=== PATIENT | male | born 1960 | race Caucasian/White ===

== ENCOUNTER 2016-09-15 01:22 | Emergency (ER) | payer OTHER ==
[~2016-09-15] VITALS: Ht 175.3 cm; Wt 110.3 kg
[~2016-09-15 01:22] MED LIST: ALBU8I INH; LISI2.5T3 PO; LORTA5 PO; METF500 PO; METHY10 PO; PRIL20TA2 PO
[2016-09-15 01:33] VITALS: BP 171/93; PULSE 77; RESP 22; TEMP 98.4; O2SAT 99
--- NOTE | 2016-09-15 01:42 | PD ---
HPI Chief Complaint: Respiratory Symptoms Time Seen by Provider: 01:39 Travel History International Travel<30 days: No Contact w/Intl Traveler<30days: No Traveled to known affect area: No History of Present Illness HPI This is a 56-year-old male who has a history of asthma who presents to the emergency department with increasing shortness of breath that started when he was laying down. He uses albuterol and he started to be able to move some mucus. He hasn't seen either mucus and isn't sure what color it is. He says he hasn't been sick up until this evening. He denies any fevers or chills. He did feel mildly short of breath, constant, with an associated cough. He denies any chest pain. PFSH Past Medical History Narrative Medical Diabetes Hypertension Asthma Arthritis: No Asthma: Yes Heart Rhythm Problems: No Cancer: No Cardiac Catheterization: No Cardiovascular Problems: Yes (htn on meds,) High Cholesterol: No Chest Pain: No Congestive Heart Failure: No COPD: No Cerebrovascular Accident: No Diabetes: Yes Diminished Hearing: No GERD: Yes Glaucoma: No Genitourinary: No Headaches: Yes (SINUS) Hepatitis: No Hiatal Hernia: No Hypertension: No Musculoskeletal: No Neurologic: No Respiratory: Yes Immunizations Current: Yes Migraines: No Myocardial Infarction: No Seizures: No Sleep Apnea: Yes Thyroid Disease: No Ulcer: No ?: Not Past Surgical History Abdominal Surgery: No Appendectomy: No Cardiac Surgery: No Cholecystectomy: No Coronary Artery Bypass Graft: No Ear Surgery: No Endocrine Surgery: No Eye Surgery: No Genitourinary Surgery: No Gynecologic Surgery: No Neurologic Surgery: Yes (SPINAL LAMINECTOMY) Oral Surgery: No Pacemaker: No Thoracic Surgery: No Tonsillectomy: Yes (TONSILS & ADNOIDS) Other Surgery: Yes Social History Alcohol Use: No Tobacco Use: No Substance Use: No Allergies-Medications (Allergen,Severity, Reaction): Coded Allergies: No Known Allergies (Verified , 09/15/16) Reported Meds & Prescriptions Reported Meds & Active Scripts Active Reported Melatonin 5 Mg Tab 5 Mg PO HS Proair Hfa 8.5 GM Inh (Albuterol Sulfate) 90 Mcg/Act Aer 2 Puff INH Q4-6H PRN 108 mcg/actuation Lisinopril 2.5 Mg Tab 2.5 Mg PO DAILY Albuterol Neb (Albuterol Sulfate) 2.5 Mg/0.5 Ml Neb 2.5 Mg NEB ONCE Note: The Albuterol Sulfate Inhalation Solution is concentrated and must be diluted. Read complete instructions carefully before using. Metformin (Metformin HCl) 500 Mg Tab 500 Mg PO BIDPC With meals Review of Systems Except as stated in HPI: all other systems reviewed are Neg Physical Exam Narrative GENERAL:Well appearing, no acute distress SKIN: Focused skin assessment warm and dry. HEAD: Atraumatic. Normocephalic. EYES: Pupils equal and round. No injection or drainage. ENT: Moist mucous membranes NECK: Trachea midline. CARDIOVASCULAR: Regular rate and rhythm. No murmur appreciated. RESPIRATORY: Mild end expiratory wheeze, speaking full sentences GASTROINTESTINAL: Abdomen soft, non-tender, nondistended. MUSCULOSKELETAL: No obvious deformities. NEUROLOGICAL: Awake and alert. No obvious cranial nerve deficits. Moving all extremities. PSYCHIATRIC: Appropriate mood and affect; insight and judgment normal. Data Data Last Documented VS Vital Signs Date Time Temp Pulse Resp B/P Pulse Ox O2 Delivery O2 Flow Rate FiO2 09/15/16 01:58 99 Room Air 09/15/16 01:33 98.4 77 22 171/93 Orders Albuterol-Ipratropium Neb (Duoneb Neb) (09/15/16 01:45) Chest, Pa & Lat (09/15/16 ) Prednisone (Deltasone) (09/15/16 01:45) MDM Medical Decision Making Medical Screen Exam Complete: Yes Emergency Medical Condition: Yes Interpretation(s) Afebrile, no tachycardia, hypertensive Chest x-ray: No acute process Differential Diagnosis Acute asthma exacerbation, pneumonia, congestive heart failure Narrative Course This is a 56-year-old male who presents to the emergency department with increased difficulty breathing this evening. He has a history of asthma. He used a bronchodilator treatment prior to coming to the emergency department and he felt significantly better upon arrival. He had some minimal expiratory wheezing on exam. I administered another DuoNeb and prednisone. Chest x-ray was unremarkable. I think the patient can be discharged home on prednisone in the setting of an acute asthma exacerbation. Diagnosis Primary Impression: Acute asthma exacerbation Qualified Code: J45.21 - Mild intermittent asthma with acute exacerbation Patient Instructions: General Instructions Additional Instructions: If you develop severe shortness of breath, chest pain, or difficulty breathing return to the emergency department. Use albuterol every 4 hours for the next 2 days. Then use as needed for wheezing. Complete your course of steroids. Follow up with your primary care physician in 2-3 days if your symptoms have not improved. Med/Other Pt SpecificInfo: Prescription(s) given Scripts Prednisone 20 Mg Tab40 Mg PO DAILY 4 Days Prov:La Beavers MD 09/15/16 Disposition: 01 DISCHARGE HOME Condition: Stable La Beavers MD Sep 15, 2016 01:42
[2016-09-15] MEDS ORDERED: RESP: ALBUTEROL 2.5 MG/IPRATROPIUM 0.5 MG NEB (SCH) NEB ONE (01:45)
[2016-09-15] MEDS ORDERED: LISI2.5T3 PO (01:45)
[2016-09-15] MEDS ORDERED: ALBUAER3 INH (01:45)
[2016-09-15] MEDS ORDERED: predniSONE 50 MG TAB PO ONE (01:45)
[2016-09-15] MEDS ORDERED: ALBU.5I NEB (01:45)
[2016-09-15] MEDS ORDERED: METF500T PO (01:45)
[2016-09-15] MEDS ORDERED: MELA5TAB15 PO (01:48)
--- NOTE | 2016-09-15 02:19 | RADRPT ---
EXAM DATE/TIME: 09/15/2016 01:44 [facility] COMPARISON: No previous studies available for comparison. INDICATIONS : Shortness of breath. MEDICAL HISTORY : Hypertension. Asthma. Diabetes. SURGICAL HISTORY : None. ENCOUNTER: Initial ACUITY: 1 day PAIN SCORE: 0/10 LOCATION: Bilateral chest FINDINGS: PA and lateral views of the chest demonstrate the lungs to be symmetrically aerated without evidence of mass, infiltrate or effusion. The cardiomediastinal contours are unremarkable. Osseous structure s are intact. CONCLUSION: Normal examination for a patient of this age. Anthony Jones MD on September 15, 2016 at 2:18 Board Certified Radiologist. This report was verified electronically.
[2016-09-15] MEDS ORDERED: PRED20 PO (02:25)
[2016-09-15 02:29] VITALS: BP 142/77; PULSE 77; RESP 18; O2SAT 96
== END 2016-09-15 02:45 | disposition home or self-care (01) ==
LOC: PHED 01:22
DX: J45.21 Mild intermittent asthma with (acute) exacerbation (principal); I10 Essential (primary) hypertension
CPT/HCPCS: 71020; 94664; 99283; J7512

== ENCOUNTER 2017-04-25 04:01 | Emergency (ER) | payer OTHER ==
[~2017-04-25] VITALS: Ht 175.3 cm; Wt 108.2 kg
[~2017-04-25 04:01] MED LIST changes: +ALBU.5I NEB; -ALBU8I INH; +ALBUAER3 INH; -LORTA5 PO; +MELA5 PO; -METF500 PO; +METF500T PO; -METHY10 PO; +PRED20 PO; -PRIL20TA2 PO
[2017-04-25 04:06] VITALS: BP 139/79; PULSE 75; RESP 18; TEMP 98.1; O2SAT 99
[2017-04-25] MEDS ORDERED: SODIUM CHLOR 0.9% 1000 ML INJ 1,000 ML IV ONE (04:34)
[2017-04-25 04:40] VITALS: BP 140/73; PULSE 68; RESP 20; O2SAT 98
[2017-04-25] MEDS ORDERED: SODIUM CHLORIDE 0.9% FLUSH 10 ML FLUSH IVF PRN (04:45)
[2017-04-25] MEDS ORDERED: ONDANSETRON HCL 4 MG/2 ML VIAL IVP ONE (04:45)
--- NOTE | 2017-04-25 04:47 | RADRPT ---
EXAM DATE/TIME: 04/25/2017 04:37 [facility] COMPARISON: CHEST PA & LAT, September 15, 2016, 1:44. INDICATIONS : Palpitations. MEDICAL HISTORY : Hypertension. Asthma. Diabetes SURGICAL HISTORY : None. ENCOUNTER: Initial ACUITY: 1 day PAIN SCORE: 1/10 LOCATION: Bilateral chest FINDINGS: A single view of the chest demonstrates the lungs to be symmetrically aerated without evidence of mas s, infiltrate or effusion. The cardiomediastinal contours are unremarkable. Osseous structures are intact. CONCLUSION: No evidence of acute cardiopulmonary disease. Farooq Emerson MD on April 25, 2017 at 4:46 Board Certified Radiologist. This report was verified electronically.
[2017-04-25 04:49] LABS: AUTOMATED NEUTROPHIL # 3.1 TH/MM3 (1.8-7.7); BASOPHIL # 0.1 TH/MM3 (0-0.2); BASOPHIL % 1.1 % (0.0-2.0); EOSINOPHIL # 0.3 TH/MM3 (0-0.4); EOSINOPHIL % 4.9 % (0.0-4.0); HEMATOCRIT 40.3 % (39.0-51.0); HEMOGLOBIN 13.9 GM/DL (13.0-17.0); LYMPH % 39.2 % (9.0-44.0); LYMPHOCYTE # 2.6 TH/MM3 (1.0-4.8); MEAN CORPUSCULAR HEMOGLOBIN 28.3 PG (27.0-34.0); MEAN CORPUSCULAR HGB CONC 34.5 % (32.0-36.0); MEAN PLATELET VOLUME 7.4 FL (7.0-11.0); MONO % 9.3 % (0.0-8.0); MONOCYTE # 0.6 TH/MM3 (0-0.9); NEUT % 45.5 % (16.0-70.0); PLATELET COUNT 326 TH/MM3 (150-450); RED BLOOD COUNT 4.92 MIL/MM3 (4.50-5.90); RED CELL DISTRIBUTION WIDTH 13.2 % (11.6-17.2); WHITE BLOOD COUNT 6.7 TH/MM3 (4.0-11.0)
[2017-04-25 04:58] LABS: CHLORIDE 103 MEQ/L (98-107); SODIUM (NA) 137 MEQ/L (136-145)
--- NOTE | 2017-04-25 04:59 | PD ---
HPI Chief Complaint: Altered Mental Status Time Seen by Provider: 04:34 Travel History International Travel<30 days: No Contact w/Intl Traveler<30days: No Traveled to known affect area: No History of Present Illness HPI 56-year-old male presents to the emergency department by private transportation for evaluation of feeling confused. Patient is a diabetic. Patient lives alone. Patient recently diagnosed with an upper respiratory infection and started on a nasal steroid and antibiotic. Patient states his last dose of medication was approximately 10 PM Wednesday evening and awakened around 4 AM feeling confused and slightly disoriented. Patient decided to bring himself to the emergency department in case there is any ongoing change. Patient has had fever and has had right sinus maxillary sinus pressure and pain. Patient does not report any visual disturbance speech disturbance upper or lower extremity numbness tingling or weakness or ataxia of gait. Patient does not report any chest pain or shortness of breath. Patient does not report any vomiting but has had nausea. Patient is also had diarrhea. Patient denies dysuria frequency urgency. No joint pain or swelling. Patient had a negative flu test as an outpatient. Patient cannot recall the name of his current antibiotic. Patient was recently started on steroid and antibiotic Wednesday. Patient does not monitor sugars. Patient rates his pain 0/10 in intensity. PFSH Past Medical History Narrative Medical Asthma hypertension diabetes sinusitis spinal fusion laminectomy no tobacco use no alcohol use Arthritis: No Asthma: Yes Heart Rhythm Problems: No Cancer: No Cardiac Catheterization: No Cardiovascular Problems: Yes (htn on meds,) High Cholesterol: No Chest Pain: No Congestive Heart Failure: No COPD: No Cerebrovascular Accident: No Diabetes: Yes Diminished Hearing: No GERD: Yes Glaucoma: No Genitourinary: No Headaches: Yes (SINUS) Hepatitis: No Hiatal Hernia: No Hypertension: No Musculoskeletal: No Neurologic: No Respiratory: Yes Immunizations Current: Yes Migraines: No Myocardial Infarction: No Seizures: No Sleep Apnea: Yes Thyroid Disease: No Ulcer: No Past Surgical History Abdominal Surgery: No Appendectomy: No Cardiac Surgery: No Cholecystectomy: No Coronary Artery Bypass Graft: No Ear Surgery: No Endocrine Surgery: No Eye Surgery: No Genitourinary Surgery: No Gynecologic Surgery: No Neurologic Surgery: Yes (SPINAL LAMINECTOMY) Oral Surgery: No Pacemaker: No Thoracic Surgery: No Tonsillectomy: Yes Other Surgery: Yes (spinal fusion ) Social History Alcohol Use: No Tobacco Use: No Substance Use: No Allergies-Medications (Allergen,Severity, Reaction): Coded Allergies: No Known Allergies (Verified , 09/15/16) Reported Meds & Prescriptions Reported Meds & Active Scripts Active Prednisone 20 Mg Tab 40 Mg PO DAILY 4 Days Reported Melatonin 5 Mg Tab 5 Mg PO HS Proair Hfa 8.5 GM Inh (Albuterol Sulfate) 90 Mcg/Act Aer 2 Puff INH Q4-6H PRN 108 mcg/actuation Lisinopril 2.5 Mg Tab 2.5 Mg PO DAILY Albuterol Neb (Albuterol Sulfate) 2.5 Mg/0.5 Ml Neb 2.5 Mg NEB ONCE Note: The Albuterol Sulfate Inhalation Solution is concentrated and must be diluted. Read complete instructions carefully before using. Metformin (Metformin HCl) 500 Mg Tab 500 Mg PO BIDPC With meals Review of Systems Except as stated in HPI: all other systems reviewed are Neg General / Constitutional: Positive: Fever, No: Chills HENT: Positive: Headaches, Congestion, No: Sore Throat, Neck Stiffness, Neck Pain Cardiovascular: No: Chest Pain or Discomfort Respiratory: No: Shortness of Breath Gastrointestinal: Positive: Nausea, Vomiting, Diarrhea, No: Abdominal Pain Genitourinary: No: Urgency, Frequency, Dysuria, Flank Pain Musculoskeletal: Positive: Myalgias, Arthralgias Skin: No Rash Neurologic: Positive: Dizziness, Change in Mentation, No: Weakness Psychiatric: No: Anxiety Hematologic/Lymphatic: No: Lymph Node Enlargement Physical Exam Narrative GENERAL: Well-developed well-nourished male no acute distress no respiratory distress SKIN: Warm and dry. HEAD: Atraumatic. Normocephalic. EYES: Pupils equal and round. No scleral icterus. No injection or drainage. ENT: No nasal bleeding or discharge. Mucous membranes pink and moist. NECK: Trachea midline. No JVD. CARDIOVASCULAR: Regular rate and rhythm. RESPIRATORY: No accessory muscle use. Clear to auscultation. Breath sounds equal bilaterally. GASTROINTESTINAL: Abdomen soft, non-tender, nondistended. Hepatic and splenic margins not palpable. MUSCULOSKELETAL: Extremities without clubbing, cyanosis, or edema. No obvious deformities. NEUROLOGICAL: Awake and alert. No obvious cranial nerve deficits. Motor grossly within normal limits. Five out of 5 muscle strength in the arms and legs. Normal speech. PSYCHIATRIC: Appropriate mood and affect; insight and judgment normal. Data Data Last Documented VS Vital Signs Date Time Temp Pulse Resp B/P (MAP) Pulse Ox O2 Delivery O2 Flow Rate FiO2 04/25/17 05:57 58 20 125/81 (96) 98 04/25/17 04:06 98.1 Orders Orders Electrocardiogram (04/25/17 04:34) Complete Blood Count With Diff (04/25/17 04:34) Comprehensive Metabolic Panel (04/25/17 04:34) Magnesium (Mg) (04/25/17 04:34) Ckmb (Isoenzyme) Profile (04/25/17 04:34) Troponin I (04/25/17 04:34) Act Partial Throm Time (Ptt) (04/25/17 04:34) Prothrombin Time / Inr (Pt) (04/25/17 04:34) Urinalysis - C+S If Indicated (04/25/17 04:34) Chest, Single Ap (04/25/17 04:34) Ct Brain W/O Iv Contrast(Rout) (04/25/17 04:34) Ecg Monitoring (04/25/17 04:34) Iv Access Insert/Monitor (04/25/17 04:34) Oximetry (04/25/17 04:34) Ondansetron Inj (Zofran Inj) (04/25/17 04:45) Sodium Chloride 0.9% Flush (Ns Flush) (04/25/17 04:45) Sodium Chlor 0.9% 1000 Ml Inj (Ns 1000 M (04/25/17 04:34) CKMB (04/25/17 04:30) CKMB% (04/25/17 04:30) Labs Laboratory Tests Test 04/25/17 04:30 White Blood Count 6.7 TH/MM3 Red Blood Count 4.92 MIL/MM3 Hemoglobin 13.9 GM/DL Hematocrit 40.3 % Mean Corpuscular Volume 82.0 FL Mean Corpuscular Hemoglobin 28.3 PG Mean Corpuscular Hemoglobin Concent 34.5 % Red Cell Distribution Width 13.2 % Platelet Count 326 TH/MM3 Mean Platelet Volume 7.4 FL Neutrophils (%) (Auto) 45.5 % Lymphocytes (%) (Auto) 39.2 % Monocytes (%) (Auto) 9.3 % Eosinophils (%) (Auto) 4.9 % Basophils (%) (Auto) 1.1 % Neutrophils # (Auto) 3.1 TH/MM3 Lymphocytes # (Auto) 2.6 TH/MM3 Monocytes # (Auto) 0.6 TH/MM3 Eosinophils # (Auto) 0.3 TH/MM3 Basophils # (Auto) 0.1 TH/MM3 CBC Comment DIFF FINAL Differential Comment Prothrombin Time 10.2 SEC Prothromb Time International Ratio 1.0 RATIO Activated Partial Thromboplast Time 27.6 SEC Blood Urea Nitrogen 12 MG/DL Creatinine 0.95 MG/DL Random Glucose 167 MG/DL Total Protein 7.3 GM/DL Albumin 3.5 GM/DL Calcium Level 7.9 MG/DL Magnesium Level 2.2 MG/DL Alkaline Phosphatase 66 U/L Aspartate Amino Transf (AST/SGOT) 13 U/L Alanine Aminotransferase (ALT/SGPT) 29 U/L Total Bilirubin 0.2 MG/DL Sodium Level 137 MEQ/L Potassium Level 3.9 MEQ/L Chloride Level 103 MEQ/L Carbon Dioxide Level 25.1 MEQ/L Anion Gap 9 MEQ/L Estimat Glomerular Filtration Rate 82 ML/MIN Total Creatine Kinase 201 U/L Creatine Kinase MB 1.0 NG/ML Troponin I LESS THAN 0.02 NG/ML MDM Medical Decision Making Medical Screen Exam Complete: Yes Emergency Medical Condition: Yes Medical Record Reviewed: Yes Interpretation(s) EKG: Normal sinus rhythm rate [address] elevation injury pattern or ectopy noted CBC & BMP Diagram 04/25/17 04:30 Total Protein 7.3, Albumin 3.5, Calcium Level 7.9 L, Magnesium Level 2.2, Alkaline Phosphatase 66, Aspartate Amino Transf (AST/SGOT) 13 L, Alanine Aminotransferase (ALT/SGPT) 29, Total Bilirubin 0.[address] 04/25/17433 Signed Impressions: Service Date/Time: Tuesday, April 25, 2017 05:01 - CONCLUSION: No acute intracranial abnormality. Right greater than left maxillary sinus disease partly seen. No associated bone destruction or soft tissue changes demonstrated. Farooq Emerson MD Chest X-Ray 04/25/17433 Signed Impressions: Service Date/Time: Tuesday, April 25, 2017 04:37 - CONCLUSION: No evidence of acute cardiopulmonary disease. Farooq Emerson MD Differential Diagnosis Sinusitis, sepsis, altered mentation, poorly controlled diabetes, encephalopathy , pneumonia, TIA, CVA, adverse medication reaction Narrative Course Patient placed on band saw filer and continuous pulse oximetry; IV access obtained; random glucose 165; specimens collected and sent for resulting At 6:39 AM patient reports he feels clinically improved no longer reports feeling fuzzy or disoriented. CT brain noncontrast reveals no acute intracranial abnormality on though does identify right greater than left maxillary sinusitis disease without bony abnormality CBC with automated differential values in normal range complete metabolic panel within normal limits cardiac enzymes are not elevated; UA pending Diagnosis Primary Impression: Sinusitis, acute maxillary Qualified Codes: J01.00 - Acute maxillary sinusitis, unspecified Additional Impressions: Adverse drug reaction Qualified Codes: T88.7XXA - Unspecified adverse effect of drug or medicament, initial encounter Adverse reaction to ear, nose, and throat drugs and preparations Qualified Codes: T49.6X5A - Adverse effect of otorhinolaryngological drugs and preparations, initial encounter Referrals: Primary Care Physician call for appointment Patient Instructions: General Instructions Med/Other Pt SpecificInfo: Prescription(s) given, Med Stopped (steroid/ antibiotic) Scripts Amoxicillin-Clavulanate (Augmentin) 875-125 Mg Tab 1 TAB PO BID for Infection for 10 Days, #20 TAB 0 Refills Prov: Lizzie Guzman MD 04/25/17 Lizzie Guzman MD Apr 25, 2017 04:59
[2017-04-25 05:00] VITALS: BP 121/78; PULSE 82; RESP 20; O2SAT 98
[2017-04-25 05:01] LABS: CALCIUM 7.9 MG/DL (8.5-10.1)
[2017-04-25 05:02] LABS: ALBUMIN 3.5 GM/DL (3.4-5.0); BICARBONATE 25.1 MEQ/L (21.0-32.0); BLOOD UREA NITROGEN 12 MG/DL (7-18); GLUCOSE,RANDOM 167 MG/DL (74-106); MAGNESIUM 2.2 MG/DL (1.5-2.5)
[2017-04-25 05:05] LABS: ALT (GPT) 29 U/L (12-78); AST (GOT) 13 U/L (15-37); CREATININE 0.95 MG/DL (0.60-1.30); GLOMERULAR FILTRATION RATE 82 ML/MIN (>89); PROTHROMBIN TIME - PATIENT 10.2 SEC (9.8-11.6)
[2017-04-25 05:06] LABS: TOTAL BILIRUBIN ADULT 0.2 MG/DL (0.2-1.0)
[2017-04-25 05:07] LABS: TOTAL PROTEIN 7.3 GM/DL (6.4-8.2)
[2017-04-25 05:08] LABS: ALKALINE PHOSPHATASE 66 U/L (45-117)
[2017-04-25 05:10] LABS: TROPONIN I LESS THAN 0.02 NG/ML (0.02-0.05)
--- NOTE | 2017-04-25 05:32 | RADRPT ---
EXAM DATE/TIME: 04/25/2017 05:01 [facility] COMPARISON: No previous studies available for comparison. INDICATIONS : Dizziness and right sided sinus pressure. RADIATION DOSE: 59.38 CTDIvol (mGy) MEDICAL HISTORY : Hypertension. Diabetes. SURGICAL HISTORY : None. ENCOUNTER: Initial ACUITY: 4 - 6 days PAIN SCALE: 8/10 LOCATION: cranial TECHNIQUE: Multiple contiguous axial images were obtained of the head. Using automated exposure control and adj ustment of the mA and/or kV according to patient size, radiation dose was kept as low as reasonably a chievable to obtain optimal diagnostic quality images. DICOM format image data is available electro nically for review and comparison. FINDINGS: CEREBRUM: The ventricles are normal for age. No evidence of midline shift, mass lesion, hemorrhage or acute in farction. No extra-axial fluid collections are seen. POSTERIOR FOSSA: The cerebellum and brainstem are intact. The 4th ventricle is midline. The cerebellopontine angle i s unremarkable. EXTRACRANIAL: There is mucoperiosteal thickening of the visualized maxillary air cells, especially on the right. Th ere is also some debris in the right maxillary sinus. SKULL: The calvaria is intact. No evidence of skull fracture. CONCLUSION: No acute intracranial abnormality. Right greater than left maxillary sinus disease partly seen. No as sociated bone destruction or soft tissue changes demonstrated. Farooq Emerson MD on April 25, 2017 at 5:30 Board Certified Radiologist. This report was verified electronically.
[2017-04-25 05:57] VITALS: BP 125/81; PULSE 58; RESP 20; O2SAT 98
[2017-04-25 06:05] VITALS: BP 120/92
[2017-04-25] MEDS ORDERED: AUGM875T3 PO (07:02)
[2017-04-25 07:06] LABS: BILIRUBIN, URINE NEG (NEG); BLOOD, URINE NEG (NEG); GLUCOSE,URINE 100 mg/dL (NEG); KETONE, URINE NEG (NEG); NITRITE,URINE NEG (NEG); URINE LEUKOCYTE ESTERASE NEG (NEG)
[2017-04-25 07:13] LABS: URINE COLOR YELLOW (YELLW/STRAW)
[2017-04-25 07:14] LABS: RBC, URINE 0-3 /hpf (0-3); SQUAMOUS EPITHELIAL CELL URINE 0-5 /hpf (0-5)
--- NOTE | 2017-04-25 09:14 | EKG ---
Date Performed: 04/25/2017 Time Performed: 04:52:41 PTAGE: 56 years EKG: Sinus rhythm NORMAL ECG PREVIOUS TRACING : 12/04/2015 19.45 No significant change from previous tracing noted. DOCTOR: Corey Feng Interpretating Date/Time 04/25/2017 09:14:08
== END 2017-04-25 07:35 | disposition home or self-care (01) ==
LOC: PHED 04:01
DX: J01.00 Acute maxillary sinusitis, unspecified (principal); T49.6X5A Adverse effect of otorhinolaryngological drugs and preparations, initial encounter; R19.7 Diarrhea, unspecified; E11.9 Type 2 diabetes mellitus without complications; J45.909 Unspecified asthma, uncomplicated; I10 Essential (primary) hypertension; K21.9 Gastro-esophageal reflux disease without esophagitis; Z79.51 Long term (current) use of inhaled steroids; Z79.899 Other long term (current) drug therapy
CPT/HCPCS: 70450; 71045; 80053; 81001; 82550; 82552; 83735; 84484; 85025; 85610; 85730; 93005; 96374; 99285; J2405; J7030

== ENCOUNTER 2017-05-12 21:28 | Emergency (ER) | payer OTHER ==
[~2017-05-12] VITALS: Ht 175.3 cm; Wt 111.0 kg
[~2017-05-12 21:28] MED LIST changes: +AUGM875T3 PO
[2017-05-12 21:44] VITALS: BP 156/79; PULSE 101; RESP 18; TEMP 102.1; O2SAT 98
[2017-05-12] MEDS ORDERED: HYDROcodone 5 MG/HOMATROPINE 1.5 MG SYRUP 5 ML CUP PO ONE (23:00)
[2017-05-12] MEDS ORDERED: OSEL75 PO (23:03)
[2017-05-12] MEDS ORDERED: GUAISYP4 PO (23:03)
--- NOTE | 2017-05-12 23:03 | PD ---
HPI Chief Complaint: Cold / Flu Symptoms Time Seen by Provider: 22:56 Travel History International Travel<30 days: No Contact w/Intl Traveler<30days: No Traveled to known affect area: No History of Present Illness HPI Patient states that about 3 weeks ago he was diagnosed with a pneumonia and given p.o. antibiotics and that had resolved. Now over the past 2-3 days he has developed this new dry cough, runny nose, sneezing, episodes but denies having any chest pain/back pain/abdominal pain/nausea/vomiting/diarrhea/ rash...... patient also states that he has had body aches, but without any fever. Patient denies any allergies to medications Patient states that he has past medical history significant for diabetes, asthma , and high blood pressure. PFSH Past Medical History Arthritis: No Asthma: Yes Heart Rhythm Problems: No Cancer: No Cardiac Catheterization: No Cardiovascular Problems: Yes High Cholesterol: Yes Chest Pain: No Congestive Heart Failure: No COPD: No Cerebrovascular Accident: No Diabetes: Yes Diminished Hearing: No GERD: Yes Glaucoma: No Genitourinary: No Headaches: Yes (SINUS) Hepatitis: No Hiatal Hernia: No Hypertension: Yes Musculoskeletal: No Neurologic: No Respiratory: Yes Immunizations Current: Yes Migraines: No Myocardial Infarction: No Seizures: No Sleep Apnea: Yes Thyroid Disease: No Ulcer: No Past Surgical History Abdominal Surgery: No Appendectomy: No Cardiac Surgery: No Cholecystectomy: No Coronary Artery Bypass Graft: No Ear Surgery: No Endocrine Surgery: No Eye Surgery: No Genitourinary Surgery: No Gynecologic Surgery: No Neurologic Surgery: Yes (SPINAL LAMINECTOMY) Oral Surgery: No Pacemaker: No Thoracic Surgery: No Tonsillectomy: Yes Other Surgery: Yes (SPINAL FUSION) Social History Alcohol Use: No Tobacco Use: No Substance Use: No Allergies-Medications (Allergen,Severity, Reaction): Coded Allergies: No Known Allergies (Verified Adverse Reaction, Unknown, 05/12/17) Reported Meds & Prescriptions Reported Meds & Active Scripts Active Augmentin (Amoxicillin-Clavulanate) 875-125 Mg Tab 1 Tab PO BID 10 Days Reported Lisinopril 2.5 Mg Tab 2.5 Mg PO DAILY Albuterol Neb (Albuterol Sulfate) 2.5 Mg/0.5 Ml Neb 2.5 Mg NEB ONCE Note: The Albuterol Sulfate Inhalation Solution is concentrated and must be diluted. Read complete instructions carefully before using. Metformin (Metformin HCl) 500 Mg Tab 500 Mg PO BIDPC With meals Review of Systems Except as stated in HPI: all other systems reviewed are Neg General / Constitutional: No: Fever Eyes: No: Visual changes HENT: Positive: Sore Throat, Rhinorrhea Cardiovascular: No: Chest Pain or Discomfort Respiratory: Positive: Cough, Sneezing Gastrointestinal: No: Abdominal Pain Genitourinary: No: Dysuria Musculoskeletal: No: Pain Skin: No Rash Neurologic: No: Weakness Psychiatric: No: Depression Endocrine: No: Polydipsia Hematologic/Lymphatic: No: Easy Bruising Physical Exam Narrative GENERAL: SKIN: Warm and dry. HEAD: Atraumatic. Normocephalic. EYES: Pupils equal and round. No scleral icterus. No injection or drainage. ENT: No nasal bleeding or discharge. Mucous membranes pink and moist. NECK: Trachea midline. No JVD. CARDIOVASCULAR: Regular rate and rhythm. RESPIRATORY: No accessory muscle use. Clear to auscultation. Breath sounds equal bilaterally. GASTROINTESTINAL: Abdomen soft, non-tender, nondistended. MUSCULOSKELETAL: Extremities without clubbing, cyanosis, or edema. No obvious deformities. NEUROLOGICAL: Awake and alert. No obvious cranial nerve deficits. Motor grossly within normal limits. Five out of 5 muscle strength in the arms and legs. Normal speech. PSYCHIATRIC: Appropriate mood and affect; insight and judgment normal. Data Data Last Documented VS Vital Signs Date Time Temp Pulse Resp B/P (MAP) Pulse Ox O2 Delivery O2 Flow Rate FiO2 05/12/17 23:06 99 Room Air 05/12/17 21:44 102.1 101 18 156/79 (104) Orders Orders Chest, Pa & Lat (05/12/17 22:56) Hydrocodone-Homatropine Liq (Hycodan Liq (05/12/17 23:00) MDM Medical Decision Making Medical Screen Exam Complete: Yes Emergency Medical Condition: Yes Medical Record Reviewed: Yes Differential Diagnosis Pneumonia versus pleural effusion versus flu Narrative Course Clinically the patient appears to have flulike symptoms, and so if chest x-ray does not show any evidence of pneumonia at this time I will go ahead and empirically treat him with Tamiflu. Chest x-ray does not show any pleural effusion, no evidence of consolidation or infiltrate to suggest pneumonia either. Diagnosis Primary Impression: flu Disposition: 01 DISCHARGE HOME Condition: Stable Tito Huddleston MD May 12, 2017 23:03
--- NOTE | 2017-05-12 23:18 | RADRPT ---
EXAM DATE/TIME: 05/12/2017 23:09 [facility] COMPARISON: CHEST PA & LAT, September 15, 2016, 1:44. INDICATIONS : Cough, chest pain for 2 weeks MEDICAL HISTORY : None. SURGICAL HISTORY : None. ENCOUNTER: Initial ACUITY: 2 weeks PAIN SCORE: 5/10 LOCATION: Bilateral chest FINDINGS: PA and lateral views of the chest demonstrate the lungs to be symmetrically aerated without evidence of mass, infiltrate or effusion. The cardiomediastinal contours are unremarkable. Osseous structure s are intact. CONCLUSION: Normal examination. Marco A Sandoval Jr., MD on May 12, 2017 at 23:16 Board Certified Radiologist. This report was verified electronically.
[2017-05-12] MEDS ORDERED: ZOFR4TAB3 SL (23:23)
== END 2017-05-12 23:29 | disposition home or self-care (01) ==
LOC: PHED 21:28
DX: J11.1 Influenza due to unidentified influenza virus with other respiratory manifestations (principal); I10 Essential (primary) hypertension; E78.00 Pure hypercholesterolemia, unspecified; E11.9 Type 2 diabetes mellitus without complications; J45.909 Unspecified asthma, uncomplicated; Z79.84 Long term (current) use of oral hypoglycemic drugs; Z79.899 Other long term (current) drug therapy
CPT/HCPCS: 71046; 99283